=== PATIENT | female | born 1970 | race Caucasian/White ===

== ENCOUNTER → 2018-07-07 10:33 | Outpatient (CLI) | payer OTHER, SELFPAY ==
--- NOTE | 2018-07-07 10:39 | BI_ITS ---
MAMMOGRAPHY - BILATERAL SCREENING REASON FOR EXAM: Female, 48 years old. Routine annual screening examination. PERTINENT HISTORY: Non-contributory. TECHNIQUE: Digital bilateral breast stacy (3D mammographic acquisition) in the CC and MLO projections. 2-D mediolateral oblique (MLO) and craniocaudad (CC) views of both breasts were obtained. CAD: Full Field Digital Mammography with Computer Added Detection was performed. COMPARISON: Comparison is made with prior study dated October 22, 2016 and March 12, 2016. FINDINGS: Breast Composition: The breasts are heterogeneously dense, which may obscure small masses. There are no dominant masses or suspicious calcifications. No other significant abnormalities are identified. There has been no significant change since the prior study. BI/SCREENING MAMM (CAD), BILAT IMPRESSION: Stable bilateral screening mammogram. Yearly follow-up mammogram recommended. (A) ASSESSMENT CATEGORY: BIRADS Category 1: Negative. A letter regarding these results will be sent to the patient by the facility within 30 days. Approximately 10% of breast cancers are not detected by mammography. A normal mammogram should not delay biopsy of a clinically suspicious abnormality. [id number] Electronically Signed: Sawyer Varner MD at 14:47 EST Tel [phone], Service support ,
== END ==
PROVIDERS: Family Provider Family Medicine; PCP Family Medicine; Referring Provider Obstetrics & Gynecology; Visit Provider Obstetrics & Gynecology
DX: Z12.31 Encounter for screening mammogram for malignant neoplasm of breast (principal)
CPT/HCPCS: 77063; 77067

== ENCOUNTER → 2018-09-16 10:27 | Outpatient (CLI) | payer OTHER, SELFPAY ==
[2018-09-16 13:07] LABS: Hemoglobin A1c 5.6 % (4.2-6.3)
[2018-09-16 13:12] LABS: Progesterone Level 4.78 ng/mL (See Comment)
[2018-09-16 15:29] LABS: Estradiol 230.7 pg/mL; Free T3 2.7 pg/mL (2.18-3.98); T4 Free Direct 0.83 ng/dL (0.76-1.46); Thyroid Stim Hormone (TSH) 4.85 uIU/mL (0.358-3.74)
[2018-09-17 10:13] LABS: DHEA Sulfate 67.2 ug/dL (41.2-243.7)
== END ==
PROVIDERS: Visit Provider Obstetrics & Gynecology
DX: N94.3 Premenstrual tension syndrome (principal)
CPT/HCPCS: 36415; 82533; 82627; 82670; 83036; 84144; 84403; 84439; 84443; 84481; 82626

== ENCOUNTER → 2018-09-23 14:04 | Outpatient (CLI) | payer OTHER, SELFPAY ==
[2018-09-28 14:21] LABS: HPV Reflexed? NOT INDICATED
== END ==
PROVIDERS: Visit Provider Obstetrics & Gynecology
DX: Z12.4 Encounter for screening for malignant neoplasm of cervix (principal)
CPT/HCPCS: 88175; G0145

== ENCOUNTER → 2018-11-26 08:48 | Outpatient (CLI) | payer OTHER, SELFPAY ==
[2018-11-26 11:09] LABS: Progesterone Level 11.83 ng/mL (See Comment)
[2018-11-26 11:10] LABS: Estradiol 164.8 pg/mL; Free T3 2.5 pg/mL (2.18-3.98); T4 Free Direct 0.85 ng/dL (0.76-1.46); Thyroid Stim Hormone (TSH) 6.07 uIU/mL (0.358-3.74)
[2018-11-27 11:26] LABS: DHEA Sulfate 60.9 ug/dL (41.2-243.7)
== END ==
PROVIDERS: Visit Provider Obstetrics & Gynecology
DX: N94.3 Premenstrual tension syndrome (principal)
CPT/HCPCS: 36415; 82533; 82627; 82670; 84144; 84403; 84439; 84443; 84481; 82626

== ENCOUNTER → 2019-07-08 07:43 | Outpatient (CLI) | payer OTHER, SELFPAY ==
--- NOTE | 2019-07-08 07:45 | BI_ITS ---
MAMMOGRAPHY - BILATERAL SCREENING REASON FOR EXAM: Female, 49 years old. Routine annual screening examination. PERTINENT HISTORY: Non-contributory. TECHNIQUE: Digital bilateral breast brittany (3D mammographic acquisition) in the CC and MLO projections. 2-D mediolateral oblique (MLO) and craniocaudad (CC) views of both breasts were obtained. CAD: Full Field Digital Mammography with Computer Added Detection was performed. COMPARISON: Comparison is made with prior study dated July 07, 2018 and October 22, 2016. FINDINGS: Breast Composition: The breasts are heterogeneously dense, which may obscure small masses. There are no dominant masses or suspicious calcifications. No other significant abnormalities are identified. There has been no significant change since the prior study. BI/SCREEN MAMM (CAD) W/BRITTANY BILAT IMPRESSION: Stable bilateral screening mammogram. Yearly follow-up mammogram recommended. (A) ASSESSMENT CATEGORY: BIRADS Category 1: Negative. A letter regarding these results will be sent to the patient by the facility within 30 days. Approximately 10% of breast cancers are not detected by mammography. A normal mammogram should not delay biopsy of a clinically suspicious abnormality. [id number] Electronically Signed: Sawyer Varner, at 9:12 EST , Service support ,
[2019-12-27 15:29] VITALS: BMI 25.8
== END ==
PROVIDERS: Referring Provider Obstetrics & Gynecology; Visit Provider Obstetrics & Gynecology
DX: Z12.31 Encounter for screening mammogram for malignant neoplasm of breast (principal)
CPT/HCPCS: 77063; 77067

== ENCOUNTER → 2019-08-05 16:45 | Outpatient (CLI) | payer OTHER, SELFPAY | PROVIDERS: Referring Provider Otolaryngology Otolaryngology/Facial Plastic Surgery; Visit Provider Otolaryngology Otolaryngology/Facial Plastic Surgery | DX: J32.9 Chronic sinusitis, unspecified (principal) | CPT/HCPCS: 87070; 87205 ==

== ENCOUNTER → 2019-12-27 16:15 | Outpatient (CLI) | payer OTHER, SELFPAY ==
[2019-12-27 15:29] VITALS: BMI 25.8
[2019-12-27 16:34] LABS: Absolute Lymphocyte Count 1.51 X10^3/uL (0.83-4.51); Absolute Neutrophil Count 3.4 X10^3/uL (2.0-7.7); Basophil# 0.05 X10^3/uL; Basophil% 0.9 % (0-1); Eosinophil# 0.14 X10^3/uL; Eosinophils% 2.4 % (0-5); Hematocrit 36.9 % (37-47); Hemoglobin 12.1 g/dL (12.0-15.0); Lymphocyte # 1.51 X10^3/ul (4.0); Lymphocyte % 25.9 % (19-41); Mean Corp Hgb Conc 32.8 g/dL (32-36); Mean Corpuscular Hgb 28.6 pg (27.0-32.0); Mean Corpuscular Volume 87.2 fL (81-99); Mean Platelet Vol. 10.1 fl (6.2-12.0); Monocyte# 0.76 X10^3/uL; Monocyte% 13.1 % (0-10); NRBC Flagged by Analyzer 0 % (0-5); Neutrophil # 3.35 X10^3/uL (2.7-7.7); Neutrophil % 57.5 % (47-70); Platelet Count 296 K/mm3 (150-450); RBC Distribution Width CV 14.2 % (11.6-14.6); RBC Distribution Width SD 44.7 fl (35.1-43.9); Red Blood Count 4.23 M/mm3 (4.2-5.4); White Blood Count 5.8 K/mm3 (4.4-11.0)
[2019-12-27 17:02] LABS: T4 Free Direct 0.88 ng/dL (0.76-1.46); Thyroid Stim Hormone (TSH) 3.75 uIU/mL (0.358-3.74)
== END ==
PROVIDERS: Visit Provider Obstetrics & Gynecology
DX: N92.6 Irregular menstruation, unspecified (principal)
CPT/HCPCS: 36415; 84439; 84443; 85025

== ENCOUNTER → 2020-01-05 11:27 | Outpatient (CLI) | payer OTHER, SELFPAY ==
[2019-12-27 15:29] VITALS: BMI 25.8
--- NOTE | 2020-01-05 | EMB_PTH ---
PATIENT: FLORIAN ALEXANDER LOC: [facility] U#:[id number] AGE/SX: 55/F ROOM: RE01/05/[address]: Dr. Alanis Barbosa MD : 1970 BED: DIS: SPEC #: [id number] RECD: 01/05/20 12:46 STATUS: ALEJANDRINA EL #: [id number] EVELYN: 01/05/20 00:[address]: Alanis Barbosa DEPT: SURGICAL PATHOLOGY RECD BY: Salbador Eagle ENTERED: 01/06/20 09:14 SP TYPE: ENDOM BX/C ERLIN DR: No Primary Care Phys Tissues: Endometrium, NOS Procedures: Surgery Specimen Level IV HEADER OPERATION: Endometrial biopsy PRE-OP DIAGNOSIS: Abnormal uterine bleeding TISSUE SUBMITTED: Endometrial biopsy MICROSCOPIC DIAGNOSIS Endometrium, biopsy: Proliferative endometrium with focal glandular breakdown. AM:benito 01/07/20 MICROSCOPIC DESCRIPTION Slides are reviewed. GROSS DESCRIPTION Received is one container labeled with the patient's name and not further designated. The specimen consists of multiple fragments of dominguez hemorrhagic soft tissue that in aggregate measure 2 x 2 x 0.2 cm. The specimen is totally submitted in one cassette. / SJ:benito 01/06/20 TC:5 CPT: [id number]
--- NOTE | 2020-01-05 11:30 | US_ITS ---
STUDY: ULTRASOUND OF THE FEMALE PELVIS - COMPLETE REASON FOR EXAM: Female, 49 years old. Bleeding TECHNIQUE: Transabdominal and Transvaginal TECHNICAL QUALITY: Adequate. COMPARISON: 05/27/2017 FINDINGS: The uterus is anteverted and is in a midline position. The uterus measures 10.6 x 7.0 x 5.6 cm. Normal uterine cervix. The endometrium measures 5 mm in thickness, and is hyperechoic. There is no demonstrated endometrial mass. There is no demonstrated myometrial mass. The right ovary is visualized. The right ovary measures 2.5 x 2.1 x 1.4 cm. There are physiologic follicles noted in the right ovary. There is no right ovarian cyst or ovarian mass. There is no visualized right adnexal mass or complex lesion. There is normal arterial and normal venous vascularity. The left ovary is visualized. The left ovary measures 2.5 x 2.4 x 2.1 cm. There are physiologic follicles noted in the left ovary. There is no left ovarian cyst or ovarian mass. There is no visualized left adnexal mass or complex lesion. There is normal arterial and normal venous vascularity. There is no fluid in the cul-de-sac. US/Pelvic (Non ) IMPRESSION: Normal female pelvis. Electronically Signed: Nathan Browne, at 12:08 EDT Tel , Service support ,
--- NOTE | 2020-01-05 11:30 | US_ITS ---
STUDY: ULTRASOUND OF THE FEMALE PELVIS - COMPLETE REASON FOR EXAM: Female, 49 years old. Bleeding TECHNIQUE: Transabdominal and Transvaginal TECHNICAL QUALITY: Adequate. COMPARISON: 05/27/2017 FINDINGS: The uterus is anteverted and is in a midline position. The uterus measures 10.6 x 7.0 x 5.6 cm. Normal uterine cervix. The endometrium measures 5 mm in thickness, and is hyperechoic. There is no demonstrated endometrial mass. There is no demonstrated myometrial mass. The right ovary is visualized. The right ovary measures 2.5 x 2.1 x 1.4 cm. There are physiologic follicles noted in the right ovary. There is no right ovarian cyst or ovarian mass. There is no visualized right adnexal mass or complex lesion. There is normal arterial and normal venous vascularity. The left ovary is visualized. The left ovary measures 2.5 x 2.4 x 2.1 cm. There are physiologic follicles noted in the left ovary. There is no left ovarian cyst or ovarian mass. There is no visualized left adnexal mass or complex lesion. There is normal arterial and normal venous vascularity. There is no fluid in the cul-de-sac. US/Transvaginal Non- IMPRESSION: Normal female pelvis. Electronically Signed: Nathan Browne, at 12:08 EDT Tel , Service support ,
== END ==
PROVIDERS: Referring Provider Obstetrics & Gynecology; Visit Provider Obstetrics & Gynecology
DX: N93.9 Abnormal uterine and vaginal bleeding, unspecified (principal)
CPT/HCPCS: 76830; 76856; 88305

== ENCOUNTER → 2020-10-23 07:46 | Outpatient (CLI) | payer OTHER, SELFPAY ==
[2020-01-05 12:15] VITALS: BMI 25.8
--- NOTE | 2020-10-23 07:48 | BI_ITS ---
MAMMOGRAPHY - BILATERAL SCREENING REASON FOR EXAM: Female, 50 years old. Routine annual screening examination. PERTINENT HISTORY: NO FM HX , GAIN 7-8#, PT CONTINUES TO HAVE OCCAS BURNING SENSATION LT OUTER BREAST AREA X 1+ Y TECHNIQUE: Digital bilateral breast brittany (3D mammographic acquisition) in the CC and MLO projections. 2-D mediolateral oblique (MLO) and craniocaudad (CC) views of both breasts were obtained. CAD: Full Field Digital Mammography with Computer Added Detection was performed. COMPARISON: 07/08/2019 and 07/07/2018 FINDINGS: Breast Composition: The breasts are heterogeneously dense, which may obscure small masses. There are no dominant masses or suspicious calcifications. No other significant abnormalities are identified. BI/SCRN MAMM (CAD)W/BRITTANY BILAT IMPRESSION: Stable bilateral screening mammogram. Yearly follow-up mammogram recommended. (A) ASSESSMENT CATEGORY: BIRADS Category 2: Benign. A letter regarding these results will be sent to the patient by the facility within 30 days. Approximately 10% of breast cancers are not detected by mammography. A normal mammogram should not delay biopsy of a clinically suspicious abnormality. [id number] Electronically Signed: Raven Weller MD at 15:21 EST Tel , Service support ,
== END ==
PROVIDERS: Referring Provider Obstetrics & Gynecology; Visit Provider Obstetrics & Gynecology
DX: Z12.31 Encounter for screening mammogram for malignant neoplasm of breast (principal)
CPT/HCPCS: 77063; 77067

== ENCOUNTER → 2021-01-09 11:01 | Outpatient (CLI) | payer OTHER, SELFPAY ==
[2021-01-09 10:07] VITALS: BMI 26.1
[2021-01-09 11:29] LABS: Absolute Lymphocyte Count 1.56 X10^3/uL (0.83-4.51); Absolute Neutrophil Count 3.4 X10^3/uL (2.0-7.7); Basophil# 0.05 X10^3/uL; Basophil% 0.8 % (0-1); Eosinophil# 0.15 X10^3/uL; Eosinophils% 2.5 % (0-5); Hematocrit 40.3 % (37-47); Hemoglobin 12.7 g/dL (12.0-15.0); Lymphocyte # 1.56 X10^3/ul (0.83-4.51); Lymphocyte % 25.7 % (19-41); Mean Corp Hgb Conc 31.5 g/dL (32-36); Mean Corpuscular Hgb 26.7 pg (27.0-32.0); Mean Corpuscular Volume 84.7 fL (81-99); Mean Platelet Vol. 10.2 fl (6.2-12.0); Monocyte# 0.86 X10^3/uL; Monocyte% 14.2 % (0-10); NRBC Flagged by Analyzer 0 % (0-5); Neutrophil # 3.42 X10^3/uL (2.7-7.7); Neutrophil % 56.5 % (47-70); Platelet Count 317 K/mm3 (150-450); RBC Distribution Width CV 14.7 % (11.6-14.6); RBC Distribution Width SD 45.8 fl (35.1-43.9); Red Blood Count 4.76 M/mm3 (4.2-5.4); White Blood Count 6.1 K/mm3 (4.4-11.0)
[2021-01-09 11:58] LABS: AST(SGOT) 12 U/L (15-37); Alanine Aminotransfer ALT/SGPT 17 U/L (13-56); Albumin, Serum 3.7 g/dL (3.2-5.0); Alkaline Phosphatase 62 U/L (45-117); Anion Gap 6 (5-15); BUN 18 mg/dL (7-18); BUN/Creat Ratio 20.5 RATIO (10-20); Calcium,Total 8.6 mg/dL (8.5-10.1); Chloride 107 mmol/L (98-107); Cholesterol 162 mg/dL (200); Creatinine, Serum 0.88 mg/dL (0.55-1.02); EST Glomerular Filtration Rate 72 mL/min (>60); Est Glom Filt Rate - Afr Amer 87 mL/min (>60); Estradiol 235.6 pg/mL; Follicle Stimulating Hormone 4.4 mIU/mL; Globulin 3.8 g/dL (2.2-4.2); Glucose 93 mg/dL (74-106); High Density Lipoprotein 65 mg/dL; Protein, Total 7.5 g/dL (6.4-8.2); Sodium Level 139 mmol/L (136-145); T4 Free Direct 0.93 ng/dL (0.76-1.46); Thyroid Stim Hormone (TSH) 2.52 uIU/mL (0.358-3.74); Triglycerides 53 mg/dL; Very Low Density Lipoprotein 11 mg/dL (5-40)
[2021-01-11 12:52] LABS: Vitamin D,25 Hydroxy 15.7 ng/mL
== END ==
PROVIDERS: Referring Provider Obstetrics & Gynecology; Visit Provider Obstetrics & Gynecology
DX: N95.1 Menopausal and female climacteric states (principal)
CPT/HCPCS: 36415; 80053; 80061; 82306; 82670; 83001; 84439; 84443; 85025

== ENCOUNTER 2021-11-19 12:28 | Outpatient (CLI) | payer BC, SELFPAY ==
--- NOTE | 2021-11-19 12:29 | BI_ITS ---
MAMMOGRAPHY - BILATERAL SCREENING REASON FOR EXAM: Female, 51 years old. Routine annual screening examination. PERTINENT HISTORY: Non-contributory. TECHNIQUE: Digital bilateral breast brittany (3D mammographic acquisition) in the CC and MLO projections. 2-D mediolateral oblique (MLO) and craniocaudad (CC) views of both breasts were obtained. CAD: Full Field Digital Mammography with Computer Added Detection was performed. COMPARISON: Comparison is made with prior examination of 10/23/2020 and 07/08/2019. FINDINGS: Breast Composition: The breasts are heterogeneously dense, which may obscure small masses. There are no dominant masses or suspicious calcifications. Stable small benign-appearing bilateral axillary lymph nodes. No other significant abnormalities are identified. There has been no significant change since the prior study. BI/SCRN MAMM (CAD)W/BRITTANY BILAT IMPRESSION: Stable bilateral screening mammogram. Yearly follow-up mammogram recommended. (A) ASSESSMENT CATEGORY: BIRADS Category 2: Benign. A letter regarding these results will be sent to the patient by the facility within 30 days. Approximately 10% of breast cancers are not detected by mammography. A normal mammogram should not delay biopsy of a clinically suspicious abnormality. [id number] Electronically Signed: Sawyer Varner MD at 13:30 EDT ,
== END 2021-11-19 23:59 | disposition home or self-care (01) ==
LOC: OPBI 12:28
PROVIDERS: Visit Provider Obstetrics & Gynecology
DX: Z12.31 Encounter for screening mammogram for malignant neoplasm of breast (principal)
CPT/HCPCS: 77063; 77067

== ENCOUNTER → 2022-01-10 | Outpatient (CLI) | payer BC, SELFPAY ==
[2022-01-10 13:45] LABS: Cholesterol 144 mg/dL (200); Glucose 98 mg/dL (74-106); High Density Lipoprotein 69 mg/dL; Thyroid Stim Hormone (TSH) 2.12 uIU/mL (0.358-3.74); Triglycerides 53 mg/dL; Very Low Density Lipoprotein 11 mg/dL (5-40)
[2022-01-10 13:46] LABS: Vitamin D,25 Hydroxy 38.4 ng/mL
[2022-01-18 16:40] LABS: HPV APTIMA, High Risk Negative (Negative)
== END | disposition home or self-care (01) ==
LOC: PAVLAB 12:42
PROVIDERS: Referring Provider Obstetrics & Gynecology; Visit Provider Obstetrics & Gynecology
DX: Z12.4 Encounter for screening for malignant neoplasm of cervix (principal)
CPT/HCPCS: 36415; 80061; 82306; 82947; 84443; 87624; 88175; G0145

== ENCOUNTER → 2022-11-26 | Outpatient (CLI) | payer BC, SELFPAY ==
--- NOTE | 2022-11-26 09:53 | BI_ITS ---
MAMMOGRAPHY - BILATERAL SCREENING 3-D TOMOSYNTHESIS REASON FOR EXAM: Female, 52 years old. Routine screening PERTINENT HISTORY: No significant family history. TECHNIQUE: 2-D mammograms and 3-D Tomosynthesis of the breast (s) were performed. CAD was performed. COMPARISON: 10/23/2020 FINDINGS: The breast composition is heterogeneously dense that can obscure small breast masses. Scattered benign calcifications are seen. No dense spiculated masses or suspicious microcalcifications are identified. No architectural distortion is identified. There is no skin thickening or retraction. There has been no significant change since the prior study. BI/SCRN MAMM (CAD)W/BRITTANY BILAT IMPRESSION: No mammographic signs of malignancy. Routine yearly mammograms recommended. ASSESSMENT CATEGORY: BIRADS Category 2: Benign. A letter regarding these results will be sent to the patient by the facility within 30 days. FOLLOW UP RECOMMENDATION: Yearly follow up mammogram recommended. (A) Approximately 10% of breast cancers are not detected by mammography. A normal mammogram should not delay biopsy of a clinically suspicious abnormality. Electronically Signed: Flavio Garcia MD at 10:39 EDT ,
== END | disposition home or self-care (01) ==
LOC: OPBI 09:51
PROVIDERS: Referring Provider Obstetrics & Gynecology; Visit Provider Obstetrics & Gynecology
DX: Z12.31 Encounter for screening mammogram for malignant neoplasm of breast (principal)
CPT/HCPCS: 77063; 77067

== ENCOUNTER → 2023-03-10 | Outpatient (CLI) | payer BC, SELFPAY ==
[2023-03-10 13:44] LABS: Absolute Lymphocyte Count 1.36 X10^3/uL (0.83-4.51); Absolute Neutrophil Count 4.1 X10^3/uL (2.0-7.7); Basophil# 0.04 X10^3/uL; Basophil% 0.6 % (0-1); Eosinophil# 0.14 X10^3/uL; Eosinophils% 2.2 % (0-5); Hemoglobin 12.6 g/dL (12.0-15.0); Lymphocyte # 1.36 X10^3/ul (0.83-4.51); Lymphocyte % 21.2 % (19-41); Mean Corp Hgb Conc 33.2 g/dL (32-36); Mean Corpuscular Hgb 29.6 pg (27.0-32.0); Mean Corpuscular Volume 89.4 fL (81-99); Monocyte# 0.73 X10^3/uL; Monocyte% 11.4 % (0-10); NRBC Flagged by Analyzer 0 % (0-5); Neutrophil # 4.13 X10^3/uL (2.7-7.7); Neutrophil % 64.4 % (47-70); Platelet Count 282 K/mm3 (150-450); RBC Distribution Width CV 13.2 % (11.6-14.6); RBC Distribution Width SD 43.1 fl (35.1-43.9); Red Blood Count 4.25 M/mm3 (4.2-5.4); White Blood Count 6.4 K/mm3 (4.4-11.0)
[2023-03-10 14:13] LABS: Vitamin D,25 Hydroxy 37.1 ng/mL
[2023-03-10 14:21] LABS: AST(SGOT) 13 U/L (15-37); Alanine Aminotransfer ALT/SGPT 17 U/L (13-56); Albumin, Serum 3.5 g/dL (3.2-5.0); Alkaline Phosphatase 62 U/L (45-117); Anion Gap 4 (5-15); BUN 11 mg/dL (7-18); BUN/Creat Ratio 15.2 RATIO (10-20); Calcium,Total 8.5 mg/dL (8.5-10.1); Chloride 106 mmol/L (98-107); Cholesterol 148 mg/dL (200); Creatinine, Serum 0.72 mg/dL (0.55-1.02); EST Glomerular Filtration Rate 90 mL/min (>60); Est Glom Filt Rate - Afr Amer 109 mL/min (>60); Globulin 3.6 g/dL (2.2-4.2); Glucose 89 mg/dL (74-106); High Density Lipoprotein 62 mg/dL; Potassium 3.7 mmol/L (3.5-5.1); Protein, Total 7.1 g/dL (6.4-8.2); Sodium Level 136 mmol/L (136-145); Thyroid Stim Hormone (TSH) 5.39 uIU/mL (0.358-3.74); Triglycerides 73 mg/dL; Very Low Density Lipoprotein 15 mg/dL (5-40)
== END | disposition home or self-care (01) ==
LOC: PAVLAB 13:09
PROVIDERS: Obstetrics & Gynecology; Referring Provider Advanced Practice Midwife; Visit Provider Advanced Practice Midwife
DX: Z01.419 Encounter for gynecological examination (general) (routine) without abnormal findings (principal); Z13.21 Encounter for screening for nutritional disorder; Z13.220 Encounter for screening for lipoid disorders; Z13.29 Encounter for screening for other suspected endocrine disorder; Z13.1 Encounter for screening for diabetes mellitus
CPT/HCPCS: 36415; 80053; 80061; 82306; 84443; 85025

== ENCOUNTER → 2023-07-19 | Outpatient (CLI) | payer BC, SELFPAY ==
--- NOTE | 2023-07-19 08:49 | US_ITS ---
INDICATION: AUB EXAMINATION: Ultrasound US Pelvis Non OB Complete With Transvaginal Imaging TECHNIQUE: Transabdominal and transvaginal pelvic ultrasound was performed. Grayscale, spectral waveform, and color flow Doppler evaluation of the adnexa. COMPARISON: 01/05/2020 FINDINGS: LMP 07/02/2023 UTERUS: Anteverted. The uterus measures 11.1 x 6.3 x 6.0 cm. Hypoechoic and heterogenous myometrial lesion consistent with fibroid measures up to 2.9 cm. The endometrial stripe measures 8 mm in AP diameter which is within normal limits. RIGHT OVARY: Not visualized due to bowel gas.. LEFT OVARY: . Non-enlarged, normal echogenicity. No Doppler vascular waveforms obtained. FREE FLUID: None. US/Pelvic w/ Transvaginal IMPRESSION: Fibroid uterus. No acute findings. Electronically Signed: Brady Patel MD at 0:23 EST ,
== END | disposition home or self-care (01) ==
LOC: OPUS 08:47
PROVIDERS: Referring Provider Obstetrics & Gynecology; Visit Provider Obstetrics & Gynecology
DX: N92.6 Irregular menstruation, unspecified (principal)
CPT/HCPCS: 76830; 76856

== ENCOUNTER → 2025-01-19 | Outpatient (CLI) | payer BC, SELFPAY ==
--- NOTE | 2025-01-19 08:45 | BI_ITS ---
EXAM: SCRN MAMM (CAD)W/BRITTANY BILAT 01/19/2025 CLINICAL HISTORY: F, Age 54 y/o , SCREEN FOR BREAST CANCER TECHNIQUE: Bilateral screening digital breast tomosynthesis with 2D and 3D images. Computer aided detection. COMPARISON: Prior exam(s) dated 11/26/2022, 11/19/2021, 10/23/2020. FINDINGS: TISSUE DENSITY: The breast tissue is composed of scattered area of fibroglandular density. Bilateral Breast Mammographic Findings: No significant masses, calcifications or other abnormalities are identified. BI/SCRN MAMM (CAD)W/BRITTANY BILAT IMPRESSION: Right Breast: BIRADS 1 NEGATIVE. Left Breast: BIRADS 1 NEGATIVE. OVERALL FINAL ASSESSMENT: BIRADS 1 NEGATIVE. RECOMMENDATION: Routine annual follow-up in 1 Year A letter with findings and recommendations will be mailed to the patient. Reading Location: [id number]
--- OUTSIDE RECORDS SUMMARY | 2025-01-19 10:16 | XMS RPT_ITS | CCD ---
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 Alanis Barbosa Attending Provider Adam Chauhan MD Primary Care Provider Care Physician, No Primary Primary Care Unava ilable Care Physician, No Primary Referring Unava ilable Alanis Barbosa Attending Unavailable Care Physician, No Primary Primary Care Unava ilable Care Physician, No Primary Referring Unava ilable Alanis Barbosa Attending Unavailable Care Physician, No Primary Primary Care Unava ilable Alanis Barbosa Attending Unavailable Alanis Barbosa Referring Unavailable Allergies Allergy Classification Reported Allergen(s) Allergy Type Date of Onset Reaction(s) Facility (3 sources) Erythromycin Drug Allergy 6 GI Upset [facility] Work Phone: (3 sources) Iodinated Contrast Media; Translations: [Iodinated Contrast Media] Allergy to substance 0 Hives [facility] Repository (1 source) sunflower seed extract Drug Allergy 0 [facility] Work Phone: (1 source) Oatmeal-Colloidal Drug Allergy 7 Vomiting [facility] Work Phone: (1 source) Erythromycin Drug Allergy 4 [facility] Repository Medications Current Medications Medication Drug Class(es) Dates Sig (Normalized) Sig (Original) Magnesium (1 source) Start: 12-27-2019 Magnesium Active 250 MG PO .every 3 days December 27, 2019 3:22pm selenium 200 mcg capsule (1 source) Start: 12-27-2019 selenium 200 mcg capsule Active 200 MCG PO .every 3 days December 27, 2019 3:22pm Problems Active Problems Problem Classification Problem Date Documented Da te Episodic/Chronic Menopausal disorders (4 sources) Menopausal syndrome; Translations: [Menopausal and female climacteric states] Onset: 09-22-2023 Chronic Menstrual disorders (4 sources) Irregular periods; Translations: [Irregular menstruation, unspecified] Onset: 09-22-2023 Chronic Nutritional deficiencies (2 sources) Vitamin D deficiency; Translations: [Vitamin D deficiency, unspecified] Chronic Other screening for suspected conditions (not mental disorders or infectious disease) (1 source) Patient encounter status; Translations: [Encounter for screening mammogram for malignant neoplasm of breast] Episodic Past or Other Problems Problem Classification Problem Date Documented Da te Episodic/Chronic Other and unspecified benign neoplasm (1 source) Benign neoplasm of connective and other soft tissue, unspecified; Translations: [Benign neoplasm of connective and other soft tissue, unspecified] Onset: 09-22-2023 Episodic Other connective tissue disease (1 source) Ganglion cyst of left hand; Translations: [Ganglion, left hand] Onset: 07-30-2017 07-30-2017 Episodic Results Test Name Value Interpretation Reference Range Facility Enrollment Processor Office Visit Reporton 2024 Enrollment Processor Office Visit Report [facility] [address], [address] [place] [address] OFFICE VISIT Date of Service: 03/30/24 MR#: [id number] Acct: [id number] Name: NICKI ALEXANDER Rep #: [id number] : 1970 Provider: Dr. 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 Alanis Barbosa MD) ASCUS of cervix with negative high risk HPV Ovarian cyst Abnormal thyroid blood test Surgical History (Updated 04/01/24 @ 20:[address] 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 Date Name GA/Weeks Outcome Route Bth Weight Gen Labor Lgth Anesthesia Del Locatn Provider FOB Unknown Alvino-1993 Unknown Arleen-1997 Unknown Asya-2001 Unknown -2006 HPI Encounter for routine gynecological examination Details: NICKI ALEXANDER is a 54 year old who presents for annual exam. Last PAP: 2021 History of abnormal PAP: Last mammogram: due History of abnormal mammogram: Colon cancer screening: due Other preventative health care screenings: No PCP Female Reproductive History Last Menstrual Period: 02/27/24 Cycle Length: >35 Bleeding Duration: 5 Associated symptoms: irregualr Questions: metorrhagia: Yes (perimenopause), sexually active: Yes, dyspareunia: No and PCB: No Menopausal Symptoms: No hot flashes, No night sweats, No weight change, No mood changes, No difficulty concentrating, No sleep problems and No change in libido ROS Const Constitutional: Reports as per HPI and weight gain; Denies fatigue, increased appetite, poor appetite, night sweats or weight loss Cardio Card: Denies chest pain Resp Resp: Denies cough or dyspnea GI GI: Reports as per HPI; Denies abdominal pain, bloating, constipation, nausea or vomiting : Reports as per HPI and other; Denies difficulty voiding, dysuria, hematuria, hot flashes, nipple discharge, pelvic pain, prolapse symptoms, urinary frequency, urinary incontinence, urinary urgency, vaginal discharge, vaginal dryness, vaginal odor or vaginal pruritus Skin Skin/Breast: Denies changing lesions, breast mass, breast pain, breast skin changes or nipple discharge Psych Psych: Denies anxiety, change in libido, depression or difficulty concentrating Exam Const General: cooperative, healthy appearing, comfortable, no acute distress, well developed and well groomed [facility] Head: normal to inspection and normocephalic Ears: hearing grossly normal bilaterally and external ears normal Nose: external nose normal Face and sinus: normal facial exam Neck Neck: normal visual inspection, full ROM and no lymphadenopathy Thyroid: thyroid normal Chest Chest palpation inspection: normal inspection of the chest Breast inspection: normal inspection of the breasts and normal inspection of the axillae Breast palpation: normal palpation of the breasts, normal palpation of the axillae and no axillary lymphadenopathy Resp Effort Inspection: normal respiratory effort GI Inspection: normal to inspection and non-distended Palpation: soft, no hepatosplenomegaly and no guarding General: bladder normal to palpation External Female Exam: normal external appearance, normal appearance of the urethra and no lesions Urethra: normal appearance of the urethra and normal palpation Speculum Exam - Vagina: normal appearance of the vag (more content not included)... Normal [facility] Enrollment Processor Office Visit Reporton 09-22-2023 Enrollment Processor Office Visit Report [facility] [address] [place] [address]. [address] [place] [address] OFFICE VISIT Date of Service: 09/22/23 MR#: [id number] Acct: [id number] Name: NICKI ALEXANDER Rep #: [id number] : 1970 Provider: Dr. Alanis hay MD Age/Sex: 53/F Location: [facility] Status: Signed Intake Vital Signs 03/07/23 14:58 09/22/23 15:00 Height 5 ft 4.75 in 5 ft 4.75 in Weight: 163 lb BMI 27.5 27.3 BP 125/85 H 123/79 H Intake Visit Reasons: fibroid follow up Software Sales Executive Required: No Is patient in pain?: No Allergies erythromycin base Allergy (Mild, Verified 09/22/23 15:08) vomit Iodinated Contrast Media [DYEE] Allergy (Verified 09/22/23 15:08) Hives Medications tranexamic acid 650 mg tablet 1,300 mg (2 x 650 mg) PO TID 5 days #30 tabs 09/22/23 [Rx Confirmed 09/22/23] Post menopausal: No Patient : No : No [facility] Medical History Abnormal thyroid blood test ASCUS of cervix with negative high risk HPV Ovarian cyst Surgical History History of partial nephrectomy Social History Smoking Status: Never smoker alcohol intake: current alcohol intake frequency: holidays/special occasions only substance use type: does not use caffeine: Yes 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 3 cm fibroid last menses was june. she is having some pelvic pressure or discomfrt, she had gone multiple months previously without a menses and then had one. now she hasn't bled for the last 2 1/2 months. she didn't feel good on the progesterone only. History 4 Elective abortions Hx Para 4 Spontaneous abortions Hx # Term Pregnancies Ectopic pregnancies Hx # Pregnancies Multiple births # of living children Past Pregnancies Del. Date Name GA/Weeks Outcome Route Bth Weight Gen Labor Lgth Anesthesia Del Locatn Provider FOB Unknown Alvino-1993 Unknown Arleen-1997 Unknown Asya-2001 Unknown [place]-2006 ROS Const Constitutional: Denies fatigue, fever(s), headache(s), increased appetite, poor appetite, weight gain or weight loss GI GI: Reports as per HPI; Denies abdominal pain, constipation, nausea or vomiting : Reports as per HPI; Denies difficulty voiding, dysuria, hematuria, pelvic pain, urinary frequency, urinary incontinence, urinary hesitancy, urinary urgency, vaginal discharge, vaginal dryness, vaginal odor, vaginal pruritus or other Exam Const General: cooperative, healthy appearing, comfortable, no acute distress and well developed Orientation: alert HENKY Head: normal to inspection and normocephalic Ears: hearing grossly normal bilaterally and external ears normal Nose: external nose normal and nares normal Face and sinus: normal facial exam Neck Neck: normal visual inspection, no lymphadenopathy and trachea midline Thyroid: thyroid normal Resp Effort Inspection: normal respiratory effort Musc Other: gross motor intact no deficits, full bilateral strength Skin General: no rashes or lesions noted Neuro Motor: muscle tone normal throughout Coding Level of Care Code Off vis,est,level 4 Diagnoses Irregular menses N92.6 Climacteric N95.1 Fibroid D21.9 Assessment and Plan Assessment and Plan (1) Irregular menses: Status: Acute Comment: discussed medical or surgical interventions. declined hormonal therapy. discussed lysteda and discussed ablation (2) Climacteric: Status: Acute Comment: exp management. supportive education (3) Fibroid: Status: Acute Comment: lysteda PRN. if persistent heavy bleeding recommend repeating EMB. Medications: New tranexamic acid begin at onset of menstrual bleeding 1,300 mg (2 x 650 mg) PO TID 30 tabs 4RF 5 days Discontinued norethindrone acetate 5mg PO BID x 3 days then once daily for remainder Discontinued Reason: Order Changed 5 mg PO DAILY 30 tabs 0RF Plan Problem list updated and treatment plans were reviewed with the patient and relevant educational handouts given. See problem list details for specific plan information. 09/22/23 1537 Date Alanis Leonardo Signature: Date (if applicable) CC: Normal [facility] Pelvic w/ Transvaginalon Pelvic w/ Transvaginal [facility] Imaging Services [address] [place] [address] Pelvic w/ Transvaginal MR#: [id number] Acct: [id number] Name: NICKI ALEXANDER Rep #: [id number] : 1970 F 53 From: Brady Patel MD PCP: Care Physician,No Primary Status: REG CLI Study: Pelvic w/ Transvaginal Date of Exam: 07/19/23 Exam# [id number] Ordering Dr: Alanis Barbosa [id number] INDICATION: AUB EXAMINATION: Ultrasound US Pelvis Non OB Complete With Transvaginal Imaging TECHNIQUE: Transabdominal and transvaginal pelvic ultrasound was performed. Grayscale, spectral waveform, and color flow Doppler evaluation of the adnexa. COMPARISON: 01/05/2020 FINDINGS: LMP 07/02/2023 UTERUS: Anteverted. The uterus measures 11.1 x 6.3 x 6.0 cm. Hypoechoic and heterogenous myometrial lesion consistent with fibroid measures up to 2.9 cm. The endometrial stripe measures 8 mm in AP diameter which is within normal limits. RIGHT OVARY: Not visualized due to bowel gas.. LEFT OVARY: . Non-enlarged, normal echogenicity. No Doppler vascular waveforms obtained. FREE FLUID: None. US/Pelvic w/ Transvaginal IMPRESSION: Fibroid uterus. No acute findings. Electronically Signed: Brady Patel MD at 0:23 EST , CC: Dr. Alanis Barbosa MD; No Primary Care Physician Erp Pm: Signed Normal [facility] Basophil percentageon 2021 Cholesterol [Mass/Vol] 144 mg/dL <200 [facility] Work Phone: Comment on above: <200 mg/dL Desirable 200-240 mg/dL Borderline >240 mg/dL High Risk Glucose [Mass/Vol] 98 mg/dL 74-106 [facility] Work Phone: Triglyceride [Mass/Vol] 53 mg/dL [facility] Work Phone: Comment on above: The drugs N-Acetylcy steine and Metamizole may falsely depress this assay.Serum Triglycerides Reference Interval Normal <150 mg/dL Borderline high 150 - 199 mg/dL High 200 - 499 mg/dL Very High > or = 500 mg/dL No Panel Informationon 01-10 Thyroid Stimulating Hormone (TSH) 2.12 uIU/mL 0.358-3.74 [facility] Work Phone: Vitamin D 25-Hydroxy 38.4 ng/mL [facility] Work Phone: Comment on above: Vitamin D 25(OH) Sta tus Range Deficiency <20 ng/mL (50nmol/L) Insufficiency 20 - 30 ng/mL (50 - 75 nmol/L) Sufficiency 30 - 100 ng/mL (75 - 250 nmol/L) Toxicity >100 ng/mL (>250 nmol/L) Serum or plasma cholesterol in HDL measurement (mass/volume)on 01-10-2022 Cholesterol in HDL [Mass/Vol] 69 mg/dL [facility] Work Phone: Comment on above: The drugs N-Acetylcy steine and Metamizole may falsely depress this assay. Reference Range HDL <40 mg/dL Low HDL Cholesterol HDL >or= 60 mg/dL High HDL Cholesterol Serum or plasma cholesterol in VLDL measurement (mass/volume)on 01-10-2022 Cholesterol in VLDL [Mass/Vol] 11 mg/dL 5-40 [facility] Work Phone: Serum or plasma low density lipoprotein (LDL) cholesterol measurement (mass/volume)on 01-10-2022 Cholesterol in LDL [Mass/Vol] 64 mg/dL 0-130 [facility] Work Phone: Vital Signs Date Time Vital Sign Value Performing Clinician Faci lity 01-10-2022 11:48-0400 Body height 164.47 cm No Primary Care Physician [facility] Work Phone: 01-10-2022 11:48-0400 Body mass index (BMI) [Ratio] 26.2 kg/m2 No Primary Care Physician [facility] Work Phone: 01-10-2022 11:48-0400 Body weight 70.76 kg No Primary Care Physician [facility] Work Phone: 01-10-2022 11:48-0400 Diastolic blood pressure 80 mm[Hg] No Primary Care Physician [facility] Work Phone: 01-10-2022 11:48-0400 Systolic blood pressure 106 mm[Hg] No Primary Care Physician [facility] Work Phone: Encounters Encounter Date Encounter Type Care Provider Facility Start: 2024 End: 2024 ambulatory No Primary Care Physician Facility:[facility] Start: 09-22-2023 End: 09-22-2023 ambulatory No Primary Care Physician Facility:[facility] Start: 07-19-2023 End: 07-19-2023 ambulatory No Primary Care Physician Facility:[facility] Start: 02-13-2022 ambulatory Adam rubio MD Work Phone: Internal Medicine [facility] Start: 01-10-2022 End: 01-10-2022 Patient encounter procedure No Primary Care Physician [facility] Start: 01-10-2022 End: 01-10-2022 Patient encounter procedure No Primary Care Physician [facility] Start: 11-19-2021 End: 11-19-2021 Patient encounter procedure [facility] Breast Imaging Procedures Date Procedure Procedure Detail Performing Clinician Start: 11-19-2021 Screening mammography Start: 05-31-2019 Adult depression scr eening assessment Adam Chauhan MD Work Phone: Start: 07-07-2018 Mammography Adam salazar MD Work Phone: Plan of Treatment Date Care Activity Detail Author Start: 03-14-2024 Urine microalbumin profile DTAP,TDAP,TD (2 - Td or Tdap) [facility] Start: 06-03-2022 DIABETES SCREEN DIABETES SCREEN [facility] Start: 04-18-2022 Influenza vaccination INFLUENZ A (Season Ended) [facility] Start: 01-18-2021 LIPID SCREEN LIPID SCREEN [facility] Start: 09-18-2020 HPV TESTING HPV TESTING [facility] Start: 09-18-2020 PAP TESTING PAP TESTING [facility] Start: 05-31-2020 Adult depression screening assessment DEPRESSION SCREENING [facility] Start: 2020 SHINGRIX VACCINE (1 of 2) SHINGRIX VACCINE (1 of 2) [facility] Start: 07-07-2019 Mammography MAMMOGRAM [facility] Start: 2015 COLOGUARD (FIT-DNA) COLOGUARD (FIT-D NA) [facility] Start: 2015 Colonoscopy COLONOSCOPY [facility] Start: 2015 COLORECTAL CANCER SCREENING COLORECTAL CANCER SCREENING [facility] Start: [address] COLONOGRAPHY [facility] Start: 2015 FECAL OCCULT BLOOD FECAL OCCULT BLOO D [facility] Start: 2015 SIGMOIDOSCOPY SIGMOIDOSCOPY [facility] Start: 1988 HEPATITIS C SCREENING HEPATITIS C SC REENING [facility] Start: 1988 HIV SCREENING HIV SCREENING [facility] Start: 1975 COVID-19 VACCINE (#1) COVID-19 VACCI NE (#1) [facility] End: 03-15-2023 Screening mammography bi 2-view breast inc cad MICHELLE SCREENING Radiology Routine Encounter for screening mammogram for breast cancer 1 Occurrences starting 02/13/2022 until 03/15/2023 [facility] Work Phone: Comment on above: 1 Occurrences starti ng 02/13/2022 until 03/15/2023 Immunizations Immunization Date Immunization Notes Care Provider Mike senior 03-14-2014 tetanus toxoid, redu gato diphtheria toxoid, and acellular pertussis vaccine, adsorbed Adam Chauhan MD Work Phone: [facility] Payers Date Payer Category Payer Self-pay [id number] 2023 Unknown [id number] 2019 Unknown MMO MMO [employer] [id number] 2019-Present [phone] [address] [place] [address] PPO [id number] Unknown SELF PAY INSURANCE [id number] Unknown [id number] Unknown [id number] Unknown [id number] Social History Date Type Detail Facility Start: 01-09-2021 End: 01-10-2022 Tobacco smoking status NHIS Unknown if ever smoked [facility] Work Phone: Start: 1970 Sex Assigned At Female [facility] Work Phone: Tobacco smoking stat us DEIS Never smoked tobacco [facility] Start: 05-31-2019 Alcohol intake Current drinke r of alcohol (finding) [facility] Start: 07-30-2017 History SDOH Alcohol Comment Rarely, once a year [facility] Start: 1970 Sex Assigned At Not on file [facility] Clinical Note 02-13-2022 Note Date & Type Note Facility 02-13-2022 Note Patient Outreach (IN TMMN) NICKI ALEXANDER ([id number]) 1970 F Date Time Provider Department 02/13/22 ADAM CHAUHAN During your visit today, we recorded the following information about you: Allergies As of Date: 02/13/2022 Noted Allergy Reaction EMYCIN (ERYTHROMYCIN) 04/30/2006 8 - GI Upset OATMEAL-COLLOIDAL 07/30/2017 11 - Vomiting SUNFLOWER SEED 08/30/2009 Date Reviewed: 05/31/2019 Reviewed by: Nicki Astudillo) JOHN Trotter - Fully Assessed Visit Diagnosis:Encounter for screening mammogram for breast cancer [Z12.31] Order(s):[facility] SCREENING [3396831] Order #: [id number] FUTURE Problem List As Of Date 02/13/2022 Noted Resolved Supervision of other normal [Z34.80] 05/01/2006 09/25/2011 Abdominal pain, generalized [R10.84] 06/04/2007 09/25/2011 Premenopausal menorrhagia [N92.4] 09/25/2011 10/30/2016 Ganglion cyst of finger of left hand [M67.442] 07/30/2017 Encounter Status:Closed by [email or web address] on 02/18/22 [facility] Clinical Note 06-12-2021 Note Date & Type Note Facility 06-12-2021 Note Patient Outreach (DAWIT TNAV) NICKI ALEXANDER ([id number]) 1970 F Date Time Provider Department 06/12/21 PABLO FRAZIER During your visit today, we recorded the following information about you: Casey Ivaniariaidan 06/12/2021 8:21 AM Signed POPULATION HEALTH NAVIGATION OUTREACH Action/FYI Unable to reach patient, left a detailed VM and sent my-chart message. Contact made with patient or family member? no Pt identified by name and :no Outreach Outcome/Action Unable to reach patient, left a detailed VM and sent my-chart message. 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: MMO / Plan: MMO [employer] / Product Type: PPO / Care Gap Reviewed:: Health maintenance - colonoscopy Reminder: Reminder note to check Health Maintenance for items below Health Maintenance items due: COVID-19 VACCINE(1) Never done HEPATITIS C SCREENING Never done HIV SCREENING Never done COLORECTAL CANCER SCREENING Never done MAMMOGRAM due on 07/07/2019 SHINGRIX VACCINE(1 of 2) Never done DEPRESSION SCREENING due on 05/31/2020 PAP TESTING due on 09/18/2020 HPV TESTING due on 09/18/2020 LIPID SCREEN due on 01/18/2021 INFLUENZA(1) Never done Advanced Directives Completed: Have you ever planned for future healthcare decisions with a power of litigation attorney, living will, or advance directives? Referrals: Message Sent to Practice: Navigation Signature: Casey Molina June 12, 2021 8:19 AM Allergies As of Date: 06/12/2021 Noted Allergy Reaction EMYCIN (ERYTHROMYCIN) 04/30/2006 8 - GI Upset OATMEAL-COLLOIDAL 07/30/2017 11 - Vomiting SUNFLOWER SEED 08/30/2009 Date Reviewed: 05/31/2019 Reviewed by: Nicki Astudillo) JOHN Trotter - Fully Assessed Reason for Visit: Population Health Navigation Outreach [3910] Cmt: deferred care - colonoscopy Problem List As Of Date 06/12/2021 Noted Resolved Supervision of other normal [Z34.80] 05/01/2006 09/25/2011 Abdominal pain, generalized [R10.84] 06/04/2007 09/25/2011 Premenopausal menorrhagia [N92.4] 09/25/2011 10/30/2016 Ganglion cyst of finger of left hand [M67.442] 07/30/2017 Encounter Status:Closed by CASEY MOLINA on 06/12/21 [facility] Progress note 06-12-2021 Note Date & Type Note Facility 06-12-2021 Note HNO ID: [id number] Author: Casey Molina Service: ? Author Type: ? Type: Progress Notes Filed: 06/12/2021 8:21 AM Note Text: POPULATION HEALTH NAVIGATION OUTREACH Action/FYI Unable to reach patient, left a detailed VM and sent my-chart message. Contact made with patient or family member? no Pt identified by name and :no Outreach Outcome/Action Unable to reach patient, left a detailed VM and sent my-chart message. 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: MMO / Plan: MMO [employer] / Product Type: PPO / Care Gap Reviewed:: Health maintenance - colonoscopy Reminder: Reminder note to check Health Maintenance for items below Health Maintenance items due: COVID-19 VACCINE(1) Never done HEPATITIS C SCREENING Never done HIV SCREENING Never done COLORECTAL CANCER SCREENING Never done MAMMOGRAM due on 07/07/2019 SHINGRIX VACCINE(1 of 2) Never done DEPRESSION SCREENING due on 05/31/2020 PAP TESTING due on 09/18/2020 HPV TESTING due on 09/18/2020 LIPID SCREEN due on 01/18/2021 INFLUENZA(1) Never done Advanced Directives Completed: Have you ever planned for future healthcare decisions with a power of litigation attorney, living will, or advance directives? Referrals: Message Sent to Practice: Navigation Signature: Casey Molina June 12, 2021 8:19 AM [facility] Clinical Note 03-09-2021 Note Date & Type Note Facility 03-09-2021 Note Patient Outreach (IN [facility]) NICKI ALEXANDER ([id number]) 1970 F Date Time Provider Department 03/09/21 ADAM CHAUHAN During your visit today, we recorded the following information about you: Allergies As of Date: 03/09/2021 Noted Allergy Reaction EMYCIN (ERYTHROMYCIN) 04/30/2006 8 - GI Upset OATMEAL-COLLOIDAL 07/30/2017 11 - Vomiting SUNFLOWER SEED 08/30/2009 Date Reviewed: 05/31/2019 Reviewed by: Nicki Astudillo) JOHN Trotter - Fully Assessed Visit Diagnosis:Encounter for screening mammogram for breast cancer [Z12.31] Order(s):MICHELLE SCREENING [[id number]] Order #: [id number] FUTURE Problem List As Of Date 03/09/2021 Noted Resolved Supervision of other normal [Z34.80] 05/01/2006 09/25/2011 Abdominal pain, generalized [R10.84] 06/04/2007 09/25/2011 Premenopausal menorrhagia [N92.4] 09/25/2011 10/30/2016 Ganglion cyst of finger of left hand [M67.442] 07/30/2017 Encounter Status:Closed by [employer], PRODUSER on 03/12/21 [facility] History of Past illness Narrative 09-25-2011 Note Date & Type Note Facility 09-25-2011 History of Past i llness Narrative Problem Noted Date Resolved Date Premenopausal menorrhagia 09/25/20112016 Abdominal pain, generalized 06/04/200703/2012 Supervision of other normal 05/01/2006 09/25/2011 documented as of this encounter (statuses as of 02/18/2022) [facility] Evaluation note Note Date & Type Note Facility Evaluation note No assessment information availa ble [facility] Work Phone: Evaluation note Note Date & Type Note Facility Evaluation note Diagnosis Onset Date Climacteric acute Irregular menses acute Vitamin D deficiency acute [facility] Work Phone: Evaluation note Note Date & Type Note Facility Evaluation note Diagnosis Encounter for screening mammogram for breast cancer documented in this encounter [facility] Reason for referral (narrative) Diagnostic Procedure Only (Routine) - Pending Review Note Date & Type Note Facility Reason for referral (narrati ve) Specialty Diagnoses / Procedures Referred By Contsharla t Referred To Contact [facility] Diagnoses Encounter for screening mammogram for breast cancer Procedures MICHELLE SCREENING SCREENING MAMMOGRAPHY BI 2-VIEW BREAST INC CAD Adam Chauhan MD [address] [place] [address] [facility] [address] [place] [address] Referral ID Status Reason Start Date Expiration Date Visits Requested Visits Authorized [id number] Pending Review Auto-Generat ed Referral 02/13/2022 03/15/2023 1 1 [facility] Chief Complaint and Reason for Visit Chief Complaint SCREENING Chief Complaint 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) Reason for Visit Climacteric Irregular menses Vitamin D deficiency Summary Purpose Family History No Family History Records FoundNo Family History Records Found Advance Directives No Advanced Directives Records FoundDocuments on File Type Date Recorded 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 Advance Directive(s) 07/31/2017 11:33 AM Additional Source Comments Goals (unrecognized section and content) Goals may be documented in a n alternate sectionGoals may be documented in an alternate section INFORMATION SOURCE (unrecogn ized section and content) DATE CREATED AUTHOR 02/18/2022 [facility] DATE CREATED AUTHOR AUTHOR'S ORGANIZ ATION 04/03/2024 [facility] Source Comments (unrecognize d section and content) In the event this informatio n is protected by the Federal Confidentiality of Alcohol and Drug Abuse Patient Records regulations: The Federal rules restrict any use of the information to criminally investigate or prosecute any alcohol or drug abuse patient.[facility] Care Teams (unrecognized sec tion and content) 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 This clinical summary was aggregated from multiple sources. Caution should be exercised in using it in the provision of clinical care. This summary normalizes information from multiple sources, and as a consequence, information in this document may materially change the coding, format and clinical context of patient data. In addition, data may be omitted in some cases. CLINICAL DECISIONS SHOULD BE BASED ON THE PRIMARY CLINICAL RECORDS. [employer] [facility]. provides no warranty or guarantee of the accuracy or completeness of information in this document.
== END | disposition home or self-care (01) ==
LOC: OPBI 08:51
PROVIDERS: Referring Provider Obstetrics & Gynecology; Visit Provider Obstetrics & Gynecology
DX: Z12.31 Encounter for screening mammogram for malignant neoplasm of breast (principal)
CPT/HCPCS: 77063; 77067

== ENCOUNTER → 2025-04-12 | Outpatient (CLI) | payer BC, SELFPAY ==
[2025-04-15 12:08] LABS: HPV APTIMA, High Risk Negative (Negative)
== END | disposition home or self-care (01) ==
LOC: LABSPEC 16:37
PROVIDERS: Referring Provider Obstetrics & Gynecology; Visit Provider Obstetrics & Gynecology
DX: Z12.4 Encounter for screening for malignant neoplasm of cervix (principal); R87.610 Atypical squamous cells of undetermined significance on cytologic smear of cervix (ASC-US)
CPT/HCPCS: 87624; 88175; G0145

== ENCOUNTER → 2025-04-13 | Outpatient (CLI) | payer BC, SELFPAY ==
[2025-04-13 12:20] LABS: Hematocrit 42.0 % (37-47); Hemoglobin 13.7 g/dL (12.0-15.0); Immature Granulocytes Count 0.020 X10^3/uL (0.0-0.0); Mean Corp Hgb Conc 32.6 g/dL (32-36); Mean Corpuscular Volume 89.0 fL (81-99); Mean Platelet Vol. 10.4 fl (6.2-12.0); NRBC Flagged by Analyzer 0 % (0-5); Platelet Count 278 K/mm3 (150-450); RBC Distribution Width CV 13.0 % (11.6-14.6); RBC Distribution Width SD 42.5 fl (35.1-43.9); Red Blood Count 4.72 M/mm3 (4.2-5.4); White Blood Count 5.2 K/mm3 (4.4-11.0)
[2025-04-13 13:12] LABS: Cholesterol 178 mg/dL (<=200); Low Density Lipoprotein Calc. 110 mg/dL; Triglycerides 48 mg/dL; Very Low Density Lipoprotein 10 mg/dL (5-40); Vitamin D,25 Hydroxy 35.1 ng/mL (30-100); cholesterol:hdl ratio screen 3.05
== END | disposition home or self-care (01) ==
PROVIDERS: Referring Provider Obstetrics & Gynecology; Visit Provider Obstetrics & Gynecology
DX: Z00.00 Encounter for general adult medical examination without abnormal findings (principal); Z13.1 Encounter for screening for diabetes mellitus; E55.9 Vitamin D deficiency, unspecified; Z13.220 Encounter for screening for lipoid disorders; N95.1 Menopausal and female climacteric states; Z13.29 Encounter for screening for other suspected endocrine disorder
CPT/HCPCS: 36415; 80061; 82306; 83036; 84443; 85025